=== PATIENT | female | born 1995 | race Caucasian/White ===

== ENCOUNTER 2018-08-22 10:17 | Inpatient (IN) | payer BC, OTHER ==
[2018-08-22] MEDS ORDERED: Sodium Chloride 0.9% 10 ML Syringe FLUSH PRN (11:46)
[2018-08-22] MEDS ORDERED: Ondansetron 4 MG/2 ML SDV IVPUSH PRN ×2 (11:46→17:01)
[2018-08-22] MEDS ORDERED: Nalbuphine 20 MG/ML 1 ML Syringe IVPUSH PRN (11:46)
[2018-08-22] MEDS ORDERED: Oxytocin/Lactated Ringers 10 UNIT/1,000 ML BAG IV SCH ×2 (12:00→14:00)
[2018-08-22] MEDS: Lactated Ringers 1,000 ML IV SCH ×4 (12:11→20:58)
[2018-08-22] MEDS: Clindamycin Phosphate 900 MG in Dextrose 5% in Water 100 ML IV SCH ×4 (12:14→20:55)
[2018-08-22] MEDS ORDERED: Lidocaine 1% 50 ML MDV INJECT ONE (15:00)
[2018-08-22] MEDS ORDERED: ePHEDrine 50 MG/ML SDV IVPUSH PRN (17:01)
[2018-08-22] MEDS ORDERED: fentaNYL 100 MCG/2 ML SDV EPIDUR PRN (17:01)
--- NOTE | 2018-08-22 17:03 | PCM.PREANE ---
Preanesthetic Assessment - Anesthesia/Transfusion/Family Hx Anesthesia History: No Prior Anesthesia Family History of Anesthesia Reaction: No Transfusion History: No Prior Transfusion(s) Intubation History: Unknown - Review of Systems General: No Symptoms Pulmonary: No Symptoms Cardiovascular: No Symptoms Gastrointestinal: No Symptoms (GERD) Neurological: No Symptoms Other: Reports: None - Physical Assessment NPO Status Date: 08/22/18 NPO Status Time: 13:00 Pulse: 95 O2 Sat by Pulse Oximetry: 99 Respiratory Rate: 18 Blood Pressure: 124/85 Temperature: 37.1 C Vital Signs: Last Vital Signs Temp 37.1 C 08/22/18 10:48 Pulse 95 08/22/18 10:48 Resp 18 08/22/18 10:48 BP 124/85 08/22/18 10:48 Pulse Ox Height: 1.6 m Weight: 85.275 kg ASA Class: 2 Mental Status: Alert & Oriented x3 Airway Class: Mallampati = 2 Dentition: Reports: Normal Dentition, Caries Thyro-Mental Finger Breadths: 3 Mouth Opening Finger Breadths: 3 ROM/Head Extension: Full Lungs: Clear to Auscultation, Normal Respiratory Effort Cardiovascular: Regular Rate, Regular Rhythm, No Murmurs - Lab Values: Laboratory Last Values WBC 10.09 K/mm3 (3.98-10.04) H 08/22/18 12:15 RBC 4.68 M/mm3 (3.98-5.22) 08/22/18 12:15 Hgb 13.8 gm/L (11.2-15.7) 08/22/18 12:15 Hct 39.8 % (34.1-44.9) 08/22/18 12:15 MCV 85.0 fl (79.4-94.8) 08/22/18 12:15 MCH 29.5 pg (25.6-32.2) 08/22/18 12:15 MCHC 34.7 g/dl (32.2-35.5) 08/22/18 12:15 RDW Std Deviation 39.4 fL (36.4-46.3) 08/22/18 12:15 Plt Count 205 K/mm3 (182-369) 08/22/18 12:15 MPV 10.1 fl (9.4-12.3) 08/22/18 12:15 Membrane Rupture Positive H 08/22/18 10:40 Above labs reviewed and noted and within acceptable ranges to proceed with epidural if desired. - Allergies Allergies/Adverse Reactions: Allergies Allergy/AdvReac Type Severity Reaction Status Date / Time aspirin Allergy Hives Verified 01/04/14 22:24 any ending in "illins" Allergy Hives Uncoded 08/22/18 11:45 - Anesthesia Plan Pre-Op Medication Ordered: None - Acknowledgements Anesthesia Type Planned: Epidural Pt an Appropriate Candidate for the Planned Anesthesia: Yes Alternatives and Risks of Anesthesia Discussed w Pt/Guardian: Yes Pt/Guardian Understands and Agrees with Anesthesia Plan: Yes PreAnesthesia Questionnaire - Past Health History Medical/Surgical History: Denies Medical/Surgical History 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 [No Known Home Meds] 01/04/14 [History] - CURRENT (IN HOUSE) MEDS Current Meds: Current Medications Clindamycin Phosphate 900 mg/ (Dextrose/Water) 106 mls @ 212 mls/hr IV Q8H KATHY Last Admin: 08/22/18 12:14 Dose: 212 mls/hr Lactated Ringer's (Ringers, Lactated) 1,000 mls @ 100 mls/hr IV ASDIRECTED KATHY Last Admin: 08/22/18 12:11 Dose: 100 mls/hr Oxytocin/Lactated Ringer's (Pitocin In Lr 10 Units/1,000 Ml) 10 unit in 1,000 mls @ 100 mls/hr IV .CONTINUOUS KATHY Oxytocin/Lactated Ringer's (Pitocin In Lr 10 Units/1,000 Ml) 10 unit in 1,000 mls @ 12 mls/hr IV TITRATE KATHY; Protocol Last Titration: 08/22/18 15:48 Dose: 5 munits/min, 30 mls/hr Nalbuphine HCl (Nubain) 10 mg IVPUSH Q2H PRN PRN Reason: pain Ondansetron HCl (Zofran) 4 mg IVPUSH Q4H PRN PRN Reason: Nausea/Vomiting Sodium Chloride (Saline Flush) 10 ml FLUSH ASDIRECTED PRN PRN Reason: Keep Vein Open Discontinued Medications Lidocaine HCl (Xylocaine 1%) 50 ml INJECT ONETIME ONE Stop: 08/22/18 15:01
[2018-08-22] MEDS ORDERED: fentaNYL/Bupivacaine-NS 2 MCG/ML-0.125%/PF 100 ML Bag EP SCH (17:15)
[2018-08-22] MEDS ORDERED: Phenylephrine 1 MG in Sodium Chloride 0.9% 10 ML IV SCH (17:15)
--- NOTE | 2018-08-23 04:38 | PCM.SN ---
- Free Text/Narrative Note: Delivery note: Halley is a 23-year-old 1 now para 1001 white female with an FLORIN of was admitted on 08/22/2018 at 39-3/7 weeks. She had spontaneous rupture membranes with positive amnio sure on the a.m. of 08/22/2018. Amniotic fluid was clear. Patient began derek very slowly. She was augmented with Pitocin and progressed to complete cervical dilation by approximately 0400 hrs. on 2018. She received clindamycin as she is group B strep positive, allergic to penicillin with the group B strep sensitive to clindamycin. She received 2 doses during her labor course. At 0413 hrs. on 08/23/2018 Halley delivered a viable, estevez, female in a left occiput anterior position over an intact perineum. Baby weighed 2800 g (6 lbs. 3 oz.), had Apgars of 7 and 9 and a length of 20 inches. Nose and mouth were bulb suctioned. Baby was placed on mom's abdomen. The umbilical cord which had 3 vessels and was allowed to pulsate 1 minute and was clamped 2 and cut by the baby's father. Cord blood was obtained. Pitocin was given IV to facilitate increased uterine tone and decrease likelihood of bleeding. Perineum was found to be intact. There are no significant lacerations noted. No suturing was required. The placenta delivered in a Pimentel fashion, appeared intact and complete and was discarded per patient desire. Patient plans to bottlefeed. Estimated blood loss was 100 mL. Condition: Good. Baby's name is Ramona Jiménez.
[2018-08-23] MEDS ORDERED: Witch Hazel Medicated Pads 100/Jar TOP PRN (04:55)
[2018-08-23] MEDS ORDERED: Docusate Sodium 100 MG Cap PO PRN (04:55)
[2018-08-23] MEDS ORDERED: Benzocaine/Menthol 20%-0.5% Spray 56 GM Canister TOP PRN (04:55)
[2018-08-23] MEDS ORDERED: Acetaminophen 325 MG Tab PO PRN (04:55)
[2018-08-23] MEDS ORDERED: Lanolin 100% Cream 7 GM Tube TOP PRN (04:55)
[2018-08-23] MEDS ORDERED: Ibuprofen 600 MG Tab PO PRN (04:55)
[2018-08-23] MEDS: Clindamycin Phosphate 900 MG in Dextrose 5% in Water 100 ML IV SCH ×2 (05:29)
[2018-08-23] MEDS ORDERED: Bupivacaine 0.25% 10 ML SDV ONE (06:00)
[2018-08-23] MEDS ORDERED: Lidocaine 1.5% with EPINEPHrine 1:200,000 5 ML Amp ONE (06:00)
--- NOTE | 2018-08-23 09:59 | PCM48HPAN ---
Post Anesthesia Note - EVALUATION WITHIN 48HRS OF ANESTHETIC Vital Signs in Normal Range: Yes Patient Participated in Evaluation: Yes Respiratory Function Stable: Yes Airway Patent: Yes Cardiovascular Function Stable: Yes Hydration Status Stable: Yes Pain Control Satisfactory: Yes Nausea and Vomiting Control Satisfactory: Yes Mental Status Recovered: Yes
--- NOTE | 2018-08-23 10:23 | PCM.SN ---
- Free Text/Narrative Note: note: Date of delivery Patient is doing well in the period. Minimal lochia, voiding well, ambulated without problems. Nursing without concerns. Patient is afebrile, vital signs are stable Abdomen is flat, soft, uterus is below the umbilicus and is firm and nontender. Legs are nontender. Assessment: recovery going well. Plan: Routine care. Patient be discharged home within the next 24-48 hours.
[2018-08-23] MEDS: Prenatal Multivitamin with Calcium/Folic Acid/Iron Tab PO SCH (22:57)
--- NOTE | 2018-08-24 07:09 | HP ---
DATE OF ADMISSION: 08/23/2018 ADMISSION DIAGNOSIS: Spontaneous rupture of membranes, early labor. HISTORY OF PRESENT ILLNESS: The patient is a 23-year-old 1, para 0 white female, who is admitted for reported spontaneous rupture of membranes. She has an FLORIN of 08/26/2018 placing her presently at 39 and 3/7 weeks gestational age. She reports rupture of membranes sometime early on the a.m. of 08/22/2018. She has had a small leak since that time and has some contractions at present. Upon admission, she is noted to be 2 cm dilated, 80% effaced, -3 station, mid position, cephalic presentation, and very soft. Contractions are occurring on a every 3-7 minute basis and are mild. EMBROIDERER HISTORY: Last menstrual period was 08/14/2017, but ultrasound done on 12/22/2017 gave a final FLORIN of 08/26/2018. Repeat ultrasounds on 01/12/2018 and 04/15/2018 supported the initial ultrasound. course was relatively unremarkable. Her first visit was on 12/24/2017 at 5 and 0/7 weeks gestational age. During the course of her regular care, the patient gained weight from 173 up to 181 pounds. Her vital signs were stable throughout the course. Her fundal height growth was appropriate. LABORATORY DATA: Laboratory testing in , blood is O-positive with negative antibody screen. Initial hemoglobin was 13.1 at first visit and platelets were 270,000. She has rubella positive immunity. Second-trimester hemoglobin was 13.5 g/dL and platelets were 232,000. One-hour glucose tolerance test was 78. Antibody screen was negative. Her RPR was nonreactive as was her hepatitis B surface antigen, IgM and IgG. Chlamydia and gonorrhea were not detected. Group B strep screen was positive. The patient is allergic to ampicillin, and group B strep was tested to see whether it was sensitive to clindamycin which it was. The patient is a candidate for clindamycin group B strep prophylaxis in Labor and Delivery. PAST MEDICAL HISTORY: Unremarkable. FAMILY HISTORY: Mother is alive and well as is her father. One sister is alive and well as is her one brother. Her maternal grandmother is alive without problems. Maternal grandfather is alive and healthy. Paternal grandmother and grandfather are also alive and generally healthy. There is no anesthesia, bleeding, blood clotting problems noted in the family. SOCIAL HISTORY: The patient is single. Significant other is Patrick Mariscal. She lives in [place]. She works at [employer]. She does not use any significant amounts of alcohol, drugs, or tobacco. EMBROIDERER HISTORY: Menarche at age 11. Cycles are very irregular at every 3 to 6 months. Duration 4 days. No control use in the past. No abnormal Pap smears or STDs noted in the past. REVIEW OF SYSTEMS: PSYCHOLOGICAL: Negative. BREAST: Negative. LUNGS. No infectious symptoms or shortness of breath. CARDIOVASCULAR: No chest pain or exercise intolerance. GI: Positive for some constipation and nausea early in the . : Changes associated with including increased fundal height. MUSCULOSKELETAL: Negative with the exception of occasional swelling. NEUROLOGICAL: Negative. PHYSICAL EXAMINATION: VITAL SIGNS: On last evaluation in clinic on 08/19/2018, the patient's weight was 181 pounds. Her blood pressure was 124/82 and pulse was 98. Temperature was 98.1. GENERAL: The patient is well-developed, well-nourished, pleasant female, stated age, in no acute distress. SKIN: Warm and dry without lesions. HEENT: Within normal limits. NECK: Within normal limits. BACK: Within normal limits. LUNGS: Clear with good breath sounds in all lung baird. CARDIOVASCULAR: Shows regular rate and rhythm without murmurs. BREAST: Deferred. ABDOMEN: Prominent with and fundal height is consistent with term . Baby is in vertex presentation by Domingo maneuvers and cervical exam. : Cervical exam as stated above. EXTREMITIES: Show trace edema, but otherwise are unremarkable. NEUROLOGIC: Grossly within normal limits. ASSESSMENT: 1. A 39-4/7 week intrauterine - spontaneous rupture of membranes - early labor. 2. The patient is group B strep positive, allergic to penicillins, but group B strep has been tested and found to be sensitive to clindamycin. She is candidate for clindamycin group B strep prophylaxis in labor per protocol. 3. The patient plans to breastfeed. 4. Rubella immune. PLAN: 1. Anticipate normal spontaneous vaginal delivery. 2. If labor is slow to progress with spontaneous rupture of membranes alone, may facilitate with Pitocin augmentation at some point. 3. Group B strep prophylaxis with clindamycin per protocol. 4. Epidural p.r.n. 5. Support decision. [facility] /[id number]
[2018-08-24] MEDS ORDERED: Measles, Mumps & Rubella Vaccine 0.5 ML SDV SUBCUT ONE (08:23)
--- NOTE | 2018-08-24 08:58 | PCM.DCSUM1 ---
Discharge Summary - Hospital Course Free Text/Narrative:: Halley is a 23-year-old 1 now para 1001 white female with an FLORIN of was admitted on 08/22/2018 at 39-3/7 weeks. She had spontaneous rupture membranes with positive amnio sure on the a.m. of 08/22/2018. Amniotic fluid was clear. Patient began derek very slowly. She was augmented with Pitocin and progressed to complete cervical dilation by approximately 0400 hrs. on 2018. She received clindamycin as she is group B strep positive, allergic to penicillin with the group B strep sensitive to clindamycin. She received 2 doses during her labor course. At 0413 hrs. on 08/23/2018 Halley delivered a viable, estevez, female in a left occiput anterior position over an intact perineum. Baby weighed 2800 g (6 lbs. 3 oz.), had Apgars of 7 and 9 and a length of 20 inches. Nose and mouth were bulb suctioned. Baby was placed on mom's abdomen. The umbilical cord which had 3 vessels and was allowed to pulsate 1 minute and was clamped 2 and cut by the baby's father. Cord blood was obtained. Pitocin was given IV to facilitate increased uterine tone and decrease likelihood of bleeding. Perineum was found to be intact. There are no significant lacerations noted. No suturing was required. The placenta delivered in a Pimentel fashion, appeared intact and complete and was discarded per patient desire. Patient plans to bottlefeed. Estimated blood loss was 100 mL. Condition: Good. Baby's name is Ramona Jiménez. patient is doing well. She is bottle feeding. She has minimal lochia , was voiding well and is ambulating without problems. She is desiring discharge home. Diagnosis: Stroke: No - Discharge Data Discharge Date: 08/24/18 Discharge Disposition: Home, Self-Care 01 Condition: Good - Patient Instructions Diet: Regular Diet as Tolerated Activity: As Tolerated (No intercourse or tampons until bleeding resolves.) Driving: May Drive Today Showering/Bathing: May Shower (may take a bath) Notify Provider of: Fever, Increased Pain, Swelling and Redness, Nausea and/or Vomiting - Discharge Plan Home Medications: Home Meds PNV95/Ferrous Fumarate/FA [ Tablet] 1 each PO DAILY 08/22/18 [History] Acetaminophen [Tylenol] 650 mg PO Q4H PRN tablet 08/24/18 [Rx] Ibuprofen [Motrin] 600 mg PO Q4H PRN tablet 08/24/18 [Rx] Referrals: Haylie Foy MD [Primary Care Provider] - (Return to clinicDr. Foy4 weeks.) - Discharge Summary/Plan Comment DC Time >30 min.: No Discharge Summary/Plan Comment: Discharge instructions: 1. Discharge home 2. Diet, activity and follow-up discussed with patient. Recommend nursing diet with increased calories and calcium. 3. Precautions given concern increased pain, bleeding, temperature, signs/ symptoms of DVT/PE. 4. Medications per home medication was printed, discussed with and given to the patient. 5. Return to clinic-Dr. Foy at [facility] in 4 weeks. Diagnosis: Term -delivered Condition: Good - Patient Data Vitals - Most Recent: Last Vital Signs Temp 36.9 C 08/24/18 03:51 Pulse 79 08/24/18 03:51 Resp 14 08/24/18 03:51 BP 115/79 08/24/18 03:51 Pulse Ox 99 08/24/18 03:51 Weight - Most Recent: 85.275 kg Med Orders - Current: Current Medications Acetaminophen (Tylenol) 650 mg PO Q4H PRN PRN Reason: mild pain or fever Benzocaine/Menthol (Dermoplast Pain Relief [place]) 0 gm TOP ASDIRECTED PRN PRN Reason: Perineal Comfort Measure Last Admin: 08/23/18 05:38 Dose: 1 canister Docusate Sodium (Colace) 100 mg PO BID PRN PRN Reason: Constipation Emollient Ointment (Lansinoh Hpa) 0 gm TOP ASDIRECTED PRN PRN Reason: Sore Nipples Ibuprofen (Motrin) 600 mg PO Q4H PRN PRN Reason: Mild pain or fever Prenat Multivit/[place]/Iron/Folic Ac ( Plus Iron) 1 each PO DAILY KATHY Last Admin: 08/23/18 22:57 Dose: Not Given Witch Gilda (Tucks) 1 pad TOP ASDIRECTED PRN PRN Reason: Hemorrhoid pain Last Admin: 08/23/18 05:37 Dose: 1 container Discontinued Medications Bupivacaine HCl (Sensorcaine-Mpf 0.25%) 10 ml .ROUTE .STK-MED ONE Stop: 08/23/18 06:01 Ephedrine Sulfate (Ephedrine Sulfate) 5 mg IVPUSH ASDIRECTED PRN PRN Reason: Hypotension Fentanyl (Sublimaze) 100 mcg EPIDUR Q3H PRN PRN Reason: Pain Last Admin: 08/22/18 19:57 Dose: 100 mcg Fentanyl/Bupivacaine HCl (Vqaehajy-Hbyfp-Dk 2 Mcg/Ml-0.125%) 100 ml EP ASDIRECTED KATHY Last Admin: 08/22/18 19:56 Dose: 100 ml Clindamycin Phosphate 900 mg/ (Dextrose/Water) 106 mls @ 212 mls/hr IV Q8H KATHY Last Admin: 08/23/18 05:29 Dose: Not Given Lactated Ringer's (Ringers, Lactated) 1,000 mls @ 100 mls/hr IV ASDIRECTED KATHY Last Admin: 08/22/18 20:58 Dose: 100 mls/hr Oxytocin/Lactated Ringer's (Pitocin In Lr 10 Units/1,000 Ml) 10 unit in 1,000 mls @ 100 mls/hr IV .CONTINUOUS KATHY Oxytocin/Lactated Ringer's (Pitocin In Lr 10 Units/1,000 Ml) 10 unit in 1,000 mls @ 12 mls/hr IV TITRATE KATHY; Protocol Last Titration: 08/22/18 18:21 Dose: 8 munits/min, 48 mls/hr Phenylephrine HCl 1 mg/ Sodium (Chloride) 10.1 mls @ 1 mls/sec IV TITRATE KATHY; Protocol Lidocaine HCl (Xylocaine 1%) 50 ml INJECT ONETIME ONE Stop: 08/22/18 15:01 Last Admin: 08/23/18 05:29 Dose: Not Given Lidocaine/Epinephrine (Xylocaine-Mpf 1.5% W/Epinephrine 1:200,000) 5 ml .ROUTE .STK-MED ONE Stop: 08/23/18 06:01 Nalbuphine HCl (Nubain) 10 mg IVPUSH Q2H PRN PRN Reason: pain Ondansetron HCl (Zofran) 4 mg IVPUSH Q4H PRN PRN Reason: Nausea/Vomiting Ondansetron HCl (Zofran) 4 mg IVPUSH ONETIME PRN PRN Reason: Nausea/Vomiting Sodium Chloride (Saline Flush) 10 ml FLUSH ASDIRECTED PRN PRN Reason: Keep Vein Open
[2018-08-24] MEDS: Prenatal Multivitamin with Calcium/Folic Acid/Iron Tab PO SCH (12:23)
== END 2018-08-24 10:45 | disposition home or self-care (01) | DRG 560 ==
LOC: JD.OBCHECK 10:17 → JD.OB 10:17 → JD.OBCHECK 15:56 → OBSVTOIN 08-23 04:13 → JD.OB 08-23 04:14
PROVIDERS: ADMIT Obstetrics & Gynecology; ATTEND Obstetrics & Gynecology
PROC: 6A550ZT Pheresis of Cord Blood Stem Cells, Single (ICD-10-PCS; principal; 2018-08-23)
PROC: 10E0XZZ Delivery of Products of Conception, External Approach (ICD-10-PCS; principal; 2018-08-23)
PROC: 00HU33Z Insertion of Infusion Device into Spinal Canal, Percutaneous Approach (ICD-10-PCS; 2018-08-23)
PROC: 3E0R3BZ Introduction of Anesthetic Agent into Spinal Canal, Percutaneous Approach (ICD-10-PCS; 2018-08-23)
DX: O99.824 Streptococcus B carrier state complicating childbirth (principal); Z3A.39 39 weeks gestation of pregnancy; Z37.0 Single live birth; O69.81X0 Labor and delivery complicated by cord around neck, without compression, not applicable or unspecified; Z88.1 Allergy status to other antibiotic agents; Z88.8 Allergy status to other drugs, medicaments and biological substances
CPT/HCPCS: 01967; 36415; 51702; 59025; 59409; 84112; 85027; 86592; A9270-GY; J2590; J3010; J3490; J7060; J7120

== ENCOUNTER 2020-03-10 10:11 | Emergency (ER) | payer BC, OTHER ==
[2020-03-10] MEDS ORDERED: diphenhydrAMINE 50 MG/ML SDV IVPUSH ONE ×2 (11:12→12:00)
[2020-03-10] MEDS ORDERED: Sodium Chloride 0.9% 1,000 ML IV ONE ×2 (11:12→12:00)
[2020-03-10] MEDS ORDERED: Ketorolac 30 MG/ML SDV IVPUSH ONE ×2 (11:12→12:00)
[2020-03-10] MEDS ORDERED: Metoclopramide 10 MG/2 ML SDV IVPUSH ONE ×2 (11:12→12:00)
[2020-03-10] MEDS ORDERED: Sodium Chloride 0.9% 10 ML Syringe FLUSH PRN ×2 (11:12→11:51)
--- NOTE | 2020-03-10 11:47 | EDM.PDOC ---
ED HPI GENERAL MEDICAL PROBLEM - General Chief Complaint: Fever Stated Complaint: FEVER/CHILLS Time Seen by Provider: 03/10/20 11:04 Source of Information: Reports: Patient, RN Notes Reviewed History Limitations: Reports: No Limitations - History of Present Illness INITIAL COMMENTS - FREE TEXT/NARRATIVE: Patient is a 24-year-old female who presents to the ED for evaluation of her fever and headache. Patient notes that she has a history of migraines, and she did get a migraine a couple of days ago, with one episode of nausea and vomiting. She states that everything was fine until yesterday, when she noticed that she had a fever, that was 104 F at home, and she states that she had another one this morning. Temperature at time of triage is 98.6 F. Patient notes that she is feeling generally well, but does feel fatigued, has body aches, has had this fever, and a headache again this morning. She is not taking any medications for this. She is not having any nausea/vomiting/diarrhea, cough/shortness of breath, she has not lost her sense of taste or smell. 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 She denies any other past medical history, she denies any surgeries, she denies any smoking/drinking/drug habits. O2 sats on room air at time of exam are 95%, she is no visible respiratory distress. Does note that her migraine seems to be a little bit worse than her typical migraines, but is in the same area that she normally gets migraines. Headache Pain Score (Numeric/FACES): 8 - Related Data Allergies Allergy/AdvReac Type Severity Reaction Status Date / Time aspirin Allergy Hives Verified 03/10/20 10:20 Penicillins Allergy Hives Verified 03/10/20 10:20 Home Meds: Home Meds . 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 ED EXAM, ENT - Physical Exam Exam: See Below Exam Limited By: No Limitations General Appearance: Alert, WD/WN, No Apparent Distress Eye Exam: Bilateral Eye: EOMI Mouth/Throat: Normal Inspection Head: Atraumatic, Normocephalic Neck: Normal Inspection Respiratory/Chest: No Respiratory Distress, Lungs Clear, Normal Breath Sounds, No Accessory Muscle Use, Chest Non-Tender Cardiovascular: Normal Peripheral Pulses, Regular Rate, Rhythm, No Murmur GI/Abdominal: Normal Bowel Sounds, Soft, Non-Tender, No Distention, No Mass Neurological: Alert, Oriented, Normal Cognition, No Motor/Sensory Deficits Psychiatric: Normal Affect, Normal Mood Skin: Warm, Dry, Intact, Normal Color, No Rash Course - Vital Signs Last Recorded V/S: Last Vital Signs Temp 98.6 F 03/10/20 10:24 Pulse 119 H 03/10/20 10:24 Resp 18 03/10/20 10:24 BP 127/90 03/10/20 10:24 Pulse Ox 97 03/10/20 10:24 Orthostatic Blood Pressure [ 129/85 Standing] Orthostatic Blood Pressure [ 124/82 Sitting] Orthostatic Blood Pressure [ 125/81 Supine] - Orders/Labs/Meds Orders: Active Orders 24 hr Category Date Time Status Peripheral IV Care [RC] . DIRECTED Care 03/10/20 11:13 Active CORONAVIRUS COVID-19 PCR PHL Stat Lab 03/10/20 11:30 Received Sodium Chloride 0.9% [Normal Saline] 1,000 ml Med 03/10/20 12:00 Active IV ASDIRECTED Sodium Chloride 0.9% [Saline Flush] Med 03/10/20 11:51 Active 10 ml FLUSH ASDIRECTED PRN Peripheral IV Insertion Adult [OM.PC] Routine Oth 03/10/20 11:13 Ordered Medication Orders Sodium Chloride (Normal Saline) 1,000 mls @ 999 mls/hr IV ASDIRECTED ONE Stop: 03/10/20 13:00 Sodium Chloride (Saline Flush) 10 ml FLUSH ASDIRECTED PRN PRN Reason: Keep Vein Open Labs: Laboratory Tests 03/10/20 03/10/20 Range/Units 11:20 11:20 WBC 5.40 (3.98-10.04) K/mm3 RBC 5.18 (3.98-5.22) M/mm3 Hgb 14.5 (11.2-15.7) gm/dl Hct 43.3 (34.1-44.9) % MCV 83.6 (79.4-94.8) fl MCH 28.0 (25.6-32.2) pg MCHC 33.5 (32.2-35.5) g/dl RDW Std Deviation 39.7 (36.4-46.3) fL Plt Count 235 (182-369) K/mm3 MPV 8.7 L (9.4-12.3) fl Neut % (Auto) 71.8 H (34.0-71.1) % Lymph % (Auto) 13.1 L (19.3-51.7) % [place] % (Auto) 14.3 H (4.7-12.5) % Eos % (Auto) 0.2 L (0.7-5.8) Baso % (Auto) 0.4 (0.1-1.2) % Neut # (Auto) 3.88 (1.56-6.13) K/mm3 Lymph # (Auto) 0.71 L (1.18-3.74) K/mm3 [place] # (Auto) 0.77 H (0.24-0.36) K/mm3 Eos # (Auto) 0.01 L (0.04-0.36) K/mm3 Baso # (Auto) 0.02 (0.01-0.08) K/mm3 Sodium 136 (136-145) mEq/L Potassium 3.8 (3.5-5.1) mEq/L Chloride 102 (98-107) mEq/L Carbon Dioxide 27 (21-32) mEq/L Anion Gap 10.8 (5-15) BUN 11 (7-18) mg/dL Creatinine 0.8 (0.55-1.02) mg/dL Est Cr Clr Drug Dosing 88.15 mL/min Estimated GFR (MDRD) > 60 (>60) mL/min BUN/Creatinine Ratio 13.8 L (14-18) Glucose 102 (74-106) mg/dL Calcium 8.9 (8.5-10.1) mg/dL Magnesium 1.8 (1.8-2.4) mg/dl Total Bilirubin 0.6 (0.2-1.0) mg/dL AST 32 (15-37) U/L ALT 64 H (14-59) U/L Alkaline Phosphatase 60 (46-116) U/L Total Protein 7.7 (6.4-8.2) g/dl Albumin 3.9 (3.4-5.0) g/dl Globulin 3.8 gm/dL Albumin/Globulin Ratio 1.0 (1-2) Meds: Medications Generic Name Dose Route Start Last Admin Trade Name Freq PRN Reason Stop Dose Admin Sodium Chloride 1,000 mls @ 999 mls/hr 03/10/20 12:00 Normal Saline IV 03/10/20 13:00 ASDIRECTED ONE Sodium Chloride 10 ml 03/10/20 11:51 Saline Flush FLUSH ASDIRECTED PRN Keep Vein Open Discontinued Medications Generic Name Dose Route Start Last Admin Trade Name Freq PRN Reason Stop Dose Admin Diphenhydramine HCl 25 mg 03/10/20 11:12 Benadryl IVPUSH 03/10/20 11:13 ONETIME ONE Diphenhydramine HCl 25 mg 03/10/20 12:00 Benadryl IVPUSH 03/10/20 12:01 ONETIME ONE Sodium Chloride 1,000 mls @ 999 mls/hr 03/10/20 11:12 Normal Saline IV 03/10/20 12:12 ASDIRECTED ONE Ketorolac Tromethamine 30 mg 03/10/20 11:12 Toradol IVPUSH 03/10/20 11:13 ONETIME ONE Ketorolac Tromethamine 30 mg 03/10/20 12:00 Toradol IVPUSH 03/10/20 12:01 ONETIME ONE Metoclopramide HCl 10 mg 03/10/20 11:12 Reglan IVPUSH 03/10/20 11:13 ONETIME ONE Metoclopramide HCl 10 mg 03/10/20 12:00 Reglan IVPUSH 03/10/20 12:01 ONETIME ONE Sodium Chloride 10 ml 03/10/20 11:12 Saline Flush FLUSH ASDIRECTED PRN Keep Vein Open - Re-Assessments/Exams Free Text/Narrative Re-Assessment/Exam: 03/10/20 11:26 Patient presents to the ED for the evaluation of her headache, and fever. She will have a state COVID-19 test taken, along with some medications for her headache, and basic labs for an initial evaluation. 03/10/20 12:15 Labs are unremarkable. Patient states that her headache is much better, after her fluids are done, she will be discharged home until she can get her state coronavirus test results. This time not entirely sure as to what is causing the fever, but could just be a viral illness in nature. Departure - Departure Time of Disposition: 12:19 Disposition: Home, Self-Care 01 Condition: Good Clinical Impression: Suspected 2019 novel coronavirus infection Headache Qualifiers: Headache type: tension-type Headache chronicity pattern: acute headache Intractability: not intractable Qualified Code(s): G44.209 - Tension-type headache, unspecified, not intractable - Discharge Information *PRESCRIPTION DRUG MONITORING PROGRAM REVIEWED*: No *COPY OF PRESCRIPTION DRUG MONITORING REPORT IN PATIENT VILL[place]: No Instructions: Migraine Headache, [id number] Forms: ED Department Discharge, ED Return to Work/School Form Care Plan Goals: You were seen in the ER today for headache/fever. Labs taken today demonstrated no focal abnormalities, you were treated with a few different IV medications and IV fluid for your headache, this did seem to help relieve your symptoms pretty good. At this time we did test you for COVID-19. We ask that you self-quarantine and limit your exposure to others until you receive your results from the [facility]. You have been given a work note to reflect this. Swabs are sent from this facility on a daily basis, at 2:30 PM, you should expect up to 3-5 business days for positive or negative results. However you may receive results earlier than this. We are doing our best to call as soon as we get results from the [place] dept. of [facility]. Please try to increase your oral fluid intake, and eat multiple small meals throughout the day, to keep yourself healthy. You may take 500 mg Tylenol every hours 6 hours for pain/fever relief. Do not exceed 4000 mg Tylenol in a 24-hour time span. However, running a fever is your body's natural response to illness, and it allows the body to develop antibodies to disease, we are recommending trying to limit the use of Tylenol as much as possible to allow your body's natural immune response. Sepsis Event Note (ED) - Evaluation Sepsis Screening Result: No Definite Risk - Focused Exam Vital Signs: Vital Signs Temp Pulse Resp BP Pulse Ox 03/10/20 10:24 98.6 F 119 H 18 127/90 97 - My Orders Last 24 Hours: My Active Orders 03/10/20 11:13 Peripheral IV Care [RC] . DIRECTED Peripheral IV Insertion Adult [OM.PC] Routine 03/10/20 11:30 CORONAVIRUS COVID-19 PCR PHL Stat 03/10/20 11:51 Sodium Chloride 0.9% [Saline Flush] 10 ml FLUSH ASDIRECTED PRN 03/10/20 12:00 Sodium Chloride 0.9% [Normal Saline] 1,000 ml IV ASDIRECTED - Assessment/Plan Last 24 Hours: My Active Orders 03/10/20 11:13 Peripheral IV Care [RC] . DIRECTED Peripheral IV Insertion Adult [OM.PC] Routine 03/10/20 11:30 CORONAVIRUS COVID-19 PCR PHL Stat 03/10/20 11:51 Sodium Chloride 0.9% [Saline Flush] 10 ml FLUSH ASDIRECTED PRN 03/10/20 12:00 Sodium Chloride 0.9% [Normal Saline] 1,000 ml IV ASDIRECTED
== END 2020-03-10 13:00 | disposition home or self-care (01) ==
LOC: JD.ED 10:11
DX: G44.209 Tension-type headache, unspecified, not intractable (principal); E66.9 Obesity, unspecified; Z68.32 Body mass index [BMI] 32.0-32.9, adult; Z20.828 Contact with and (suspected) exposure to other viral communicable diseases; Z88.6 Allergy status to analgesic agent; Z88.0 Allergy status to penicillin
CPT/HCPCS: 36415; 80053; 83735; 85025; 96361; 96374; 96375; 99283; 99284-25; U0002

== ENCOUNTER 2022-03-31 12:52 | Inpatient (IN) | payer OTHER ==
[2022-04-05] MEDS ORDERED: Sodium Chloride 0.9% 10 ML Syringe FLUSH PRN (00:01)
[2022-04-05] MEDS ORDERED: Nalbuphine HCl 10 MG/ 1ML Amp IVPUSH PRN (00:01)
[2022-04-05] MEDS ORDERED: ceFAZolin 2 GM in Sodium Chloride 0.9% 50 ML IV ONE (00:01)
[2022-04-05] MEDS ORDERED: Ondansetron 4 MG/2 ML SDV IVPUSH PRN (00:01)
[2022-04-05] MEDS ORDERED: Oxytocin/Lactated Ringers 10 UNIT/1,000 ML BAG IV SCH ×2 (00:15→07:47)
[2022-04-05] MEDS: Lactated Ringers 1,000 ML IV SCH ×3 (00:44→08:16)
[2022-04-05] MEDS ORDERED: ePHEDrine 50 MG/ML SDV IVPUSH PRN (03:49)
[2022-04-05] MEDS ORDERED: diphenhydrAMINE 50 MG/ML SDV IVPUSH PRN (03:49)
[2022-04-05] MEDS ORDERED: fentaNYL 100 MCG/2 ML SDV EPIDUR PRN (03:49)
[2022-04-05] MEDS ORDERED: Bupivacaine/fentaNYL/NS 100 ML Bag EPIDUR PRN (03:49)
[2022-04-05] MEDS ORDERED: ceFAZolin 1 GM in Sodium Chloride 0.9% 100 ML IV SCH ×2 (06:00→09:00)
[2022-04-05] MEDS ORDERED: Bupivacaine 0.25% 10 ML SDV ONE (06:00)
[2022-04-05] MEDS ORDERED: Sodium Chloride 0.9% 10 ML Syringe FLUSH SCH (09:00)
[2022-04-05] MEDS ORDERED: Benzocaine/Menthol 20%-0.5% Spray 78 GM Cannister TOP PRN (14:08)
[2022-04-05] MEDS ORDERED: Acetaminophen 325 MG Tab PO PRN (14:08)
[2022-04-05] MEDS ORDERED: Ibuprofen 600 MG Tab PO PRN (14:08)
[2022-04-05] MEDS ORDERED: Docusate Sodium 100 MG Cap PO PRN (14:08)
== END 2022-04-06 13:10 | disposition home or self-care (01) | DRG 807 ==
LOC: JD.OB 04-04 12:35 → OBSVTOIN 04-05 12:35 → JD.OB 04-05 12:36
PROVIDERS: ADMIT Obstetrics & Gynecology; ATTEND Obstetrics & Gynecology
PROC: 10E0XZZ Delivery of Products of Conception, External Approach (ICD-10-PCS; principal; 2022-04-05)
PROC: 10907ZC Drainage of Amniotic Fluid, Therapeutic from Products of Conception, Via Natural or Artificial Opening (ICD-10-PCS; 2022-04-05)
PROC: 3E0R3BZ Introduction of Anesthetic Agent into Spinal Canal, Percutaneous Approach (ICD-10-PCS; 2022-04-05)
DX: O99.824 Streptococcus B carrier state complicating childbirth (principal); Z37.0 Single live birth; O69.1XX0 Labor and delivery complicated by cord around neck, with compression, not applicable or unspecified; Z3A.40 40 weeks gestation of pregnancy; Z88.6 Allergy status to analgesic agent; Z88.0 Allergy status to penicillin
CPT/HCPCS: 01967; 36415; 51702; 59025; 59409; 85027; 86592; 86850; 86900; 86901; A9270-GY; J0690; J2590; J3010; J3490; J7120